=== PATIENT | female | born 1970 | race Caucasian/White ===

== ENCOUNTER 2020-02-11 18:59 | Emergency (ER) | payer BC, SELFPAY ==
--- NOTE | ~2020-02-11 | XR_ITS ---
XR femur LT min 2V 02/11/2020 21:38 Indication: Left hip pain. Pain to the entire femur. Procedure: 2 views left femur Comparison: CT dated 01/12/2019 Findings: There is deformity of the left acetabulum, likely related to remote trauma or degenerative change. There is osteoarthritis of the left knee. No fracture or traumatic malalignment. No focal sof t tissue abnormality. No foreign bodies. Impression: 1: No acute fracture. Reviewed, dictated and finalized at location A. Impression: 1: No acute fracture.
[2020-02-11 19:54] VITALS: BP 150/85; PULSE 75; RESP 17; TEMP 36.3; O2SAT 100
--- NOTE | 2020-02-11 21:34 | ED.LOWEXIN ---
HPI - Extremity Injury (Lower) General Chief Complaint: Extremity Injury, Lower Stated Complaint: left leg pain Time Seen by Provider: 02/11/20 21:09 Source: patient Mode of arrival: ambulatory Limitations: no limitations History of Present Illness HPI Narrative: This patient is 49 year old female who presents for evaluation of left leg pain x 2 weeks. She has been having constant pain to left leg but it is mainly pain in left thight. THis pain is described as throbbing , and it is worse with movement and walking. She has been taking tylenol for pain without relief. She denies leg weakness, numbness or tingling. She denies any injury . Related Data Allergies Allergy/AdvReac Type Severity Reaction Status Date / Time prochlorperazine Allergy Intermediate HIVES Verified 01/12/19 17:39 Review of Systems Review of Systems: All systems reviewed & are unremarkable except as noted in HPI and below Constitutional: Constitutional: Denies chills and Denies fever(s) Cardiovascular: Cardiovascular: Denies chest pain Respiratory: Respiratory: Denies cough and Denies dyspnea Gastrointestinal: Gastrointestinal: Denies nausea Musculoskeletal: Comments: left leg throbbing Neurologic: Denies headache(s), Denies focal weakness and Denies numbness PMFSH Past Medical History Medical History (Updated 02/12/20 @ 00:00 by Farhad Michelle) Hypertension Social History Social History (Updated 02/11/20 @ 21:36 by Maris Vargas MD) Smoking status: Never smoker Substance use: never Gender identity (if verbalized by the patient): Female Exam Narrative: Exam Narrative: GENERAL: Well-appearing, well-nourished, and in no acute distress. HEAD: Normocephalic, atraumatic EYES: PERRLA and EOMI, conjunctiva clear without discharge THROAT:Mucous membranes moist, NECK: Supple, without lymphadenopathy or mass RESPIRATORY: No respiratory distress, Airway patent, Respirations non-labored, Clear to auscultation without rales, rhonchi or wheeze HEART: Regular rate and rhythm. No murmur heard. Normal peripheral pulses. ABDOMEN: Soft, nontender, nondistended, normal active bowel sounds. No masses. No rebound or guarding, No organomegaly. EXTREMITIES: No edema, normal strength with full range of motion. SKIN: Warm, dry, normal color without rash NEURO: Alert and oriented x3. CN 2-12 grossly intact. No focal deficits. PSYCH: Normal mood and affect. Skin: Rashes: no rashes Extrem: Other: mild left thigh tenderness, no swelling noted, strong left DP/PT palpable pulses. good cap refill, neurovascularly intact Psych: Mental Status: mental status grossly normal Affect: normal affect Course Reevaluation(s) Reevaluation #1: I Discussed with patient that labs are normal. Unlikely DVT, PAD as cause. I Discussed deformity on xray and she will follow up with PCP. She has not abdominal pain or tenderness to suggest referred pain. Date: 02/11/20 Time: 22:48 Vital Signs Vital signs: Vital Signs Temperature 97.4 F L 02/11/20 19:54 Pulse Rate 75 02/11/20 19:54 Respiratory Rate 17 02/11/20 19:54 Blood Pressure 150/85 H 02/11/20 19:54 Pulse Oximetry 100 02/11/20 19:54 Temperature 97.4 F L 02/11/20 19:54 Pulse Rate 80 02/11/20 23:05 Respiratory Rate 18 02/11/20 23:05 Blood Pressure 127/70 02/11/20 23:05 Pulse Oximetry 98 02/11/20 23:05 MDM - Extremity Injury (Lower) Lab Data Attestation: I reviewed the patient's lab results. Result diagrams: 02/11/20 21:49 02/11/20 21:49 Labs: Lab Results 02/11/20 02/11/20 02/11/20 Range/Units 21:49 21:49 21:49 WBC 7.7 (4.5-10.0) K/mm3 RBC 5.10 (4.2-5.4) M/mm3 Hgb 13.2 (12.0-15.0) g/dL Hct 41.9 (37.0-47.0) % MCV 82.2 (80-100) fl MCH 25.9 L (26-34) pg MCHC 31.5 L (32-36) g/dl RDW 14.5 (11.5-14.5) % Plt Count 347 (150-375) k/mm3 MPV 9.9 (7.4-10.4) fl Immature Gra
[2020-02-11] MEDS: KETOROLAC (*BKC) 60 MG/2 ML VIAL IM (21:52)
[2020-02-11] MEDS: ONDANSETRON HCL ODT 4 MG TABLET PO (21:52)
[2020-02-11 22:04] LABS: Basophils Percent Auto 0.4 % (0.2-1.2); Eosinophils Percent Auto 0.5 % (0-4.4); Hematocrit 41.9 % (37.0-47.0); Hemoglobin 13.2 g/dL (12.0-15.0); Immature Granulocyte Absolute 0.02 K/mm3 (0.00-0.031); Immature Granulocyte Percent A 0.3 % (0-0.5); Lymphocytes Absolute Auto 2.83 K/mm3 (0.9-3.2); Lymphocytes Percent Auto 36.6 % (18.3-44.2); Mean Corpuscular HGB Conc 31.5 g/dl (32-36); Mean Corpuscular Hemoglobin 25.9 pg (26-34); Mean Corpuscular Volume 82.2 fl (80-100); Mean Platelet Volume 9.9 fl (7.4-10.4); Monocytes Absolute Auto 0.5 K/mm3 (0.1-0.6); Monocytes Percent Auto 6.5 % (2.6-8.5); Neutrophils Absolute Auto 4.3 K/mm3 (1.3-6.7); Neutrophils Percent Auto 55.7 % (45.5-73.1); Platelet Count Result 347 k/mm3 (150-375); Red Cell Distribution Width 14.5 % (11.5-14.5); White Blood Count 7.7 K/mm3 (4.5-10.0)
[2020-02-11 22:12] LABS: Anion Gap 14.6 mmol/L (7-16); Blood Urea Nitrogen 16 mg/dL (7-17); CRP < 0.5 mg/dL (<1.0); Calcium 9.7 mg/dL (8.4-10.2); Carbon Dioxide 26 mmol/L (22-30); Chloride 99 mmol/L (98-107); Estimated CRCL calculation 133 ml/min; Estimated Glomerular Filt Rate > 60; Glucose 100 mg/dL (65-105); Potassium 3.6 mmol/L (3.4-5.0); Sodium 136 mmol/L (137-145)
[2020-02-11 22:34] LABS: D Dimer 0.27 ug/mL (<0.48)
[2020-02-11 23:05] VITALS: BP 127/70; PULSE 80; RESP 18; O2SAT 98
== END 2020-02-11 23:06 | disposition home or self-care (01) ==
PROVIDERS: Emergency Provider General Practice
DX: M79.652 Pain in left thigh (principal); I10 Essential (primary) hypertension
CPT/HCPCS: 36415; 73552; 80048; 85025; 85380; 86140; 96372; 99283; A9270; J1885

== ENCOUNTER 2022-06-04 11:03 | Emergency (ER) | payer BC, SELFPAY ==
[2022-06-04 11:07] VITALS: BP 143/78; PULSE 96; RESP 17; TEMP 36.3; O2SAT 95
[2022-06-04 11:51] LABS: Influenza A QL RT-PCR Positive (Negative); Influenza B QL RT-PCR Negative (Negative); SARS-CoV-2 RNA PCR Negative
--- NOTE | 2022-06-04 13:20 | ED.URI ---
HPI - URI/Sore Throat General Chief Complaint: Upper Respiratory Infection Stated Complaint: cough, URI symptoms Time Seen by Provider: 06/04/22 12:47 History of Present Illness HPI Narrative: Patient is a 51-year-old female who presents ER with cough and cold symptoms. Ongoing for 1 week. Body aches and fevers. Has generalized fatigue. Sinus congestion. She has been taking Mucinex without improvement. 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 Related Data Allergies Allergy/AdvReac Type Severity Reaction Status Date / Time prochlorperazine Allergy Intermediate HIVES Verified 01/12/19 17:39 Review of Systems Review of Systems: All systems reviewed & are unremarkable except as noted in HPI and below Constitutional: Constitutional: Reports chills, Reports fatigue and Reports fever(s) ENT: Reports nasal congestion and Reports sore throat Cardiovascular: Cardiovascular: Denies chest pain, Denies rapid heart rate and Denies radiating jaw, neck or arm pain Respiratory: Respiratory: Reports cough, Denies dyspnea and Denies wheezing Gastrointestinal: Gastrointestinal: Denies abdominal pain, Denies nausea and Denies vomiting PMFSH Past Medical History Medical History (Updated 06/04/22 @ 13:21 by Duncan Adorno MD) Hypertension Social History Social History (Updated 02/11/20 @ 21:36 by Maris Vargas MD) Smoking status: Never smoker Substance use: never Gender identity (if verbalized by the patient): Female Exam Narrative: GENERAL: Well-appearing, well-nourished, and in no acute distress. HEAD: Normocephalic, atraumatic. CHEST: Clear to auscultation. No respiratory distress. HEART: Regular rate and rhythm. Normal peripheral pulses. EXTREMITIES: Normal range of motion. NEURO: Alert and oriented x3. PSYCH: Normal mood and affect. Course Course Emergency Course: Patient resting comfortably. Declines fluids or Toradol. Discharge home. Vital Signs Vital signs: Vital Signs Temperature 97.4 F L 06/04/22 11:07 Pulse Rate 96 06/04/22 11:07 Respiratory Rate 17 06/04/22 11:07 Blood Pressure 143/78 H 06/04/22 11:07 Pulse Oximetry 95 06/04/22 11:07 Oxygen Delivery Room Air 06/04/22 11:07 Temperature 97.4 F L 06/04/22 11:07 Pulse Rate 96 06/04/22 11:07 Respiratory Rate 17 06/04/22 11:07 Blood Pressure 143/78 H 06/04/22 11:07 Pulse Oximetry 95 06/04/22 11:07 Oxygen Delivery Room Air 06/04/22 11:07 MDM - URI/Sore Throat Lab Data Labs: Lab Results 06/04/22 Range/Units 11:09 Influenza A (RT-PCR) Positive (Negative) Influenza B (RT-PCR) Negative (Negative) SARS-CoV-2 RNA (RT-PCR) Negative Discharge Plan Discharge Clinical Impression: Influenza Patient Disposition: Home, Self-Care Condition: Stable Instructions: Influenza (ED) Additional Instructions: Lose consciousness, you cannot keep down food or water, you have chest pain or shortness of breath, you have additional concerns. Prescriptions: No Action naproxen 500 mg tablet 500 mg PO BID PRN (Reason: pain) Qty: 14 0RF cyclobenzaprine 10 mg tablet 10 mg PO TID PRN (Reason: muscle spasm) Qty: 10 0RF methylprednisolone [Medrol (Frank)] 4 mg tablets,dose pack See Rx Instructions .ROUTE .COMPLEX Qty: 21 0RF Rx Instructions: orally per package directions Follow-up/Referrals: PHYSICIAN NOT ON STAFF,NONSTAFF [Primary Care Provider] - 1 Week Stand Alone Forms: Work/School Release IP
== END 2022-06-04 13:28 | disposition home or self-care (01) ==
PROVIDERS: Emergency Medicine; Emergency Provider Emergency Medicine
DX: J11.1 Influenza due to unidentified influenza virus with other respiratory manifestations (principal); I10 Essential (primary) hypertension; Z20.822 Contact with and (suspected) exposure to COVID-19
CPT/HCPCS: 87636; 99283